=== PATIENT | female | born 1990 | race Caucasian/White ===

== ENCOUNTER 2019-01-09 08:27 | Emergency (ER) | payer MEDICAID ==
[2019-01-09 08:52] VITALS: BP 134/77
--- NOTE | 2019-01-09 09:05 | ER Document Report ---
HPI - HPI Patient complains to provider of: cough Time Seen by Provider: 01/09/19 08:54 Onset: Other - 21/2 months Pain Level: 2 Context: This 28-year-old female with history of bronchitis and exercise-induced asthma as a child presents emergency department with complaints of cough for the past 2 and half months. No complaints of fever vomiting diarrhea. Respiratory rate even unlabored, no cough noted during the entire interview and assessment. Associated Symptoms: Nonproductive cough Exacerbated by: Coughing Relieved by: Denies Similar symptoms previously: No Recently seen / treated by doctor: No - REPRODUCTIVE Reproductive: DENIES: : Past Medical History - General Information source: Patient Last Menstrual Period: Current - Social History Smoking Status: Current Every Day Smoker Cigarette use (# per day): Yes Chew tobacco use (# tins/day): No Frequency of alcohol use: None Drug Abuse: None Lives with: Family Family History: Reviewed & Not Pertinent Patient has suicidal ideation: No Patient has homicidal ideation: No Pulmonary Medical History: Reports: Hx Asthma, Hx Bronchitis Musculoskeletal Medical History: Reports Hx Musculoskeletal Deformity, Reports Hx Musculoskeletal Trauma Past Surgical History: Reports: Hx Oral Surgery - wisdom teeth, Hx Tubal Ligation - Immunizations Hx Diphtheria, Pertussis, Tetanus Vaccination: Yes Hx Pneumococcal Vaccination: 06/08/13 Vertical Provider Document - CONSTITUTIONAL Agree With Documented VS: Yes Exam Limitations: No Limitations General Appearance: WD/WN, No Apparent Distress - INFECTION CONTROL TRAVEL OUTSIDE OF THE [place] IN LAST 30 DAYS: No - HEENT HEENT: Atraumatic, Normal ENT Exam, Normocephalic. negative: Conjuctival Injection, Pharyngeal Exudate, Pharyngeal Erythema, Tympanic Membrane Bulging - NECK Neck: Normal Inspection, Supple. negative: Lymphadenopathy-Left, Lymphadenopathy-Right - RESPIRATORY Respiratory: Breath Sounds Normal, No Respiratory Distress. negative: Rhonchi, Wheezing - CARDIOVASCULAR Cardiovascular: Regular Rate, Regular Rhythm - GI/ABDOMEN Gastrointestinal: Abdomen Soft, Abdomen Non-Tender - MUSCULOSKELETAL/EXTREMETIES Musculoskeletal/Extremeties: JUANA ROMANO - NEURO Level of Consciousness: Awake, Alert, Appropriate Motor/Sensory: No Motor Deficit - DERM Integumentary: Warm, Dry Course - Re-evaluation Re-evalutation: 01/09/19 09:04 28-year-old female presents with complaints of cough for the past 2-1/2 months. She reports hurts sometimes when she takes a deep breath or coughs hard. No complaints of fever vomiting diarrhea. 01/09/19 09:59 Chest x-ray negative for pneumonia. Patient was instructed on results. Instructed on Tessalon. Push fluids quit smoking. She verbalized understanding to all instructions. Chest X-Ray 01/09/19 09:02 IMPRESSION: No acute cardiopulmonary process. 01/09/19 10:44 Dictation of this chart was performed using voice recognition software; therefore, there may be some unintended grammatical errors. - Vital Signs Vital signs: Temp Pulse Resp BP Pulse Ox 98.1 F 72 20 134/77 H 99 01/09/19 08:58 01/09/19 08:58 01/09/19 08:58 01/09/19 08:58 01/09/19 08:58 - Diagnostic Test Radiology reviewed: Image reviewed, Reports reviewed Discharge - Discharge Clinical Impression: Cough Condition: Stable Disposition: HOME, SELF-CARE Instructions: Tessalon [place] ([facility] [place]) Additional Instructions: *You have been evaluated for a cough *Take medication as indicated *Increase fluids, quit smoking *Monitor your temperature, take Tylenol as indicated *Follow up with a primary care provider within 1 week for recheck. *Return to ED for increasing fever, cough, worsening condition, changes, needs Monitor your blood pressure. Your blood pressure was elevated today. This may be because you were anxious, in pain or because you need medication. It is important to follow up with your primary care provider for full evaluation. Prescriptions: Benzonatate [Tessalon Perles 100 mg Capsule] 100 mg PO ASDIR PRN #20 capsule PRN Reason: Forms: Smoking Cessation Education, Elevated Blood Pressure Referrals: LOCALDE,NO [Primary Care Provider] - Follow up as needed
--- NOTE | 2019-01-09 09:50 | RADIOLOGY REPORT (SQ) ---
EXAM DESCRIPTION: CHEST 2 VIEWS COMPLETED DATE/TIME: 01/09/2019 9:21 am REASON FOR STUDY: cough COMPARISON: None. EXAM PARAMETERS: NUMBER OF VIEWS: two views TECHNIQUE: PA and lateral views of the chest were obtained. RADIATION DOSE: NA LIMITATIONS: none FINDINGS: LUNGS AND PLEURA: No consolidation, pleural effusion or pneumothorax. MEDIASTINUM AND HILAR STRUCTURES: No mediastinal or hilar contour abnormality. HEART AND VASCULAR STRUCTURES: The cardiac silhouette and pulmonary vasculature are within normal marquez its. BONES: Dextroconvex scoliotic curvature of the thoracic spine. HARDWARE: None in the chest. OTHER: No other finding. IMPRESSION: No acute cardiopulmonary process. TECHNICAL DOCUMENTATION: JOB ID: [id number] [employer]- All Rights Reserved Reading location - IP/workstation name: [email or web address]
== END 2019-01-09 10:00 | disposition home or self-care (01) ==
LOC: ER 08:27
DX: R05 Cough (principal); R07.1 Chest pain on breathing; F17.210 Nicotine dependence, cigarettes, uncomplicated
CPT/HCPCS: 71046; 99283